=== PATIENT | male | born 1950 | race Caucasian/White ===

== ENCOUNTER 2020-10-21 10:22 | Outpatient (REF) | payer MEDICARE, SELFPAY | END 2020-10-21 10:23 | disposition home or self-care (01) | LOC: HO.LAB 10:22 | PROVIDERS: Visit Provider Internal Medicine | DX: Z20.828 Contact with and (suspected) exposure to other viral communicable diseases (principal) | CPT/HCPCS: C9803; U0003 ==

== ENCOUNTER 2022-06-25 09:55 | Day surgery (SDC) | payer MEDICARE, SELFPAY ==
[2022-06-25 10:05] VITALS: BP 134/86; PULSE 73; RESP 18; TEMP 36.5; O2SAT 96; BMI 34.9
[2022-06-25] MEDS: Lactated Ringers 1,000 ML 100 ML IVCONT (10:31)
--- NOTE | 2022-06-25 12:15 | P.CONAN_ITS ---
HPI - Anesthesia Eval Consult details Narrative: 72 M for colonoscopy a fib ,CAD s/p CABG in 2019 . On LAsix COPD, SHIRIN PMFSH Past Medical History Medical History Afib Anxiety COPD (chronic obstructive pulmonary disease) Hyperlipemia Hypertension Prediabetes Functional capacity: independent ambulation Family History Family history of problems with anesthesia: No Surgical History Surgical History History of colonoscopy History of coronary artery bypass graft x 2 History of elbow surgery History of knee surgery History of repair of left rotator cuff History of Problems with Anesthesia: No Social History Social History Patient Tobacco Use Status: Former Tobacco user Quit Date: 30 years ago Use of substances other than those prescribed or required for medical reasons: No Are you DNR?: No Advance Directives: No Advance Directives Information Provided: Yes Meds Allergies Allergy/AdvReac Type Severity Reaction Status Date / Time No Known Allergies Allergy Unverified 07/17/20 15:30 Active Medications: Current Medications Lactated Ringer's (Lr) 1,000 mls @ 100 mls/hr IVCONT .Q10H BRENDA Last Admin: 06/25/22 10:31 Dose: 100 mls/hr Sodium Biphosphate/Sodium Phosphate (Sodium Phosphate,Dickenson-Dibasic 133 Ml Enema) 133 ml PA ONCE PRN PRN Reason: Poor Colonoscopy Prep Results Home Medications Medication Instructions Recorded Confirmed Last Taken Type albuterol sulfate 90 mcg/actuation inh inhalation 06/24/22 Unknown History aerosol inhaler ezetimibe 10 mg tablet 1 tab PO DAILY 06/24/22 06/24/22 Unknown History fluticasone fur. 100 mcg-umeclid 1 puff inhalation DAILY 06/24/22 06/24/22 Unknown History 62.5 mcg-vilant 25 mcg inhalat.powder (Trelegy Ellipta) montelukast 10 mg tablet 1 tab PO DAILY 06/24/22 06/24/22 Unknown History tamsulosin 0.4 mg capsule 1 cap PO DAILY 06/24/22 06/24/22 Unknown History venlafaxine 75 mg capsule,extended 1 cap PO DAILY 06/24/22 06/24/22 Unknown History release 24 hr Exam Exam Date and Time: June 25, 2022 1215 Height,Weight and Vital Signs: Height 6 ft 1 in Weight 120.202 kg Last Vital Signs Temp 97.7 F 06/25/22 10:05 Pulse 73 06/25/22 10:05 Resp 18 06/25/22 10:05 BP 134/86 06/25/22 10:05 Pulse Ox 96 06/25/22 10:05 O2 Del Method 06/25/22 10:05 Airway Mallampati Class: III TM Dist: >3cm Neck ROM: Full Loose/Missing/Broken Teeth: Yes (Chipped tooth , bridge permanent ) Heart: S1,S2 Lungs: b/l breath sounds Assessment and Plan Assessment Anesthesia Assessment: Anesthesia Plan Discussed and Chart Reviewed Final Anesthetic Review Family History of Problems with Anesthesia: No History of Problems with Anesthesia: No NPO: Yes ASA Class: III Final Preanesthetic Review: Meds/Allgs Chart Reviewed, Consent Obtained/Reviewed and Anes Risks/Benef Reviewed Patient Risk: Intermediate Procedure Risk: Intermediate Anesthetic Plan Anesthetic Plan: MAC: Disposition: Standard PACU
[2022-06-25 13:23] VITALS: BP 124/81; PULSE 83; RESP 21; TEMP 36.8; O2SAT 100
--- NOTE | 2022-06-25 13:30 | PM.OP ---
Brief Operative Note Date of Service: 06/25/22 Pre-op diagnosis: Screening Post-op diagnosis: other (Colon polyps) Procedure: Colonoscopy to the cecum with hot snare polypectomy x 4 and placement of a Resolution clip on each polypectomy site. Surgeon: Jose E Calle Anesthesia: MAC Was an Power Builder Developer used for this Procedure?: No Estimated blood loss (mL): 0 Pathology: other (A. Polyp at 60cm B. Transverse colon polyps C. Rectal polyp) Condition: stable Disposition: PACU
[2022-06-25 13:45] VITALS: BP 156/97; PULSE 82; RESP 18; TEMP 36.8; O2SAT 97
--- NOTE | 2022-06-25 22:12 | OP_ITS ---
SURGEON: Jose E Calle MD INDICATIONS: The patient presents for followup of colorectal cancer screening. Full consent has been obtained from him for this, including risks of bleeding and perforation. PREOPERATIVE DIAGNOSIS: Colorectal cancer screening. POSTOPERATIVE DIAGNOSIS: PROCEDURE PERFORMED: Colonoscopy to cecum with hot snare polypectomy x4 and placement of a Resolution clip on each polypectomy site. ESTIMATED BLOOD LOSS: COMPLICATIONS: ANESTHESIA: Monitored anesthesia care. ASSISTANTS: SPECIMENS: POSTOPERATIVE DIAGNOSES: Colorectal cancer screening, colon polyps, diverticulosis, and internal hemorrhoids. DESCRIPTION OF PROCEDURE: The patient was placed in the left lateral decubitus position. The digital rectal exam revealed no abnormalities. The Olympus video pediatric colonoscope was entered into the rectum and advanced easily to the cecum. Once in the cecum, I did identify normal-appearing cecal pouch with appendiceal orifice and a normal-appearing ileocecal valve. The entire cecum and ileocecal valve appeared normal. The scope was slowly withdrawn assessing all mucosal surfaces carefully. Preparation was excellent. In the more proximal transverse colon was an approximately 10 mm to 12 mm polyp, which was removed by hot snare polypectomy, recovered by suction. In the more distal transverse colon, was an approximately 1.5 cm polyp on a short stalk, which was removed by hot snare polypectomy and then recovered with a retrieval net. The scope was brought out of the patient and then readvanced back to the polypectomy site. At 60 cm, was an approximately 8 mm polyp, which was removed by hot snare polypectomy and recovered by suction. In the distal rectum, was an approximately 5 or 6 mm polyp, which was removed by hot snare polypectomy and recovered by suction. All four of the polypectomy sites appeared clean, without any sign of residual polyp nor bleeding. A single Resolution clip was placed on each polypectomy site with good deployment and good hemostasis. I did not visualize any other polyps, colitis, or angiodysplasia. There was a mild amount of sigmoid diverticulosis. In the rectum, scope was retroflexed visualizing some small internal hemorrhoids. The scope was straightened and withdrawn from the patient. He tolerated the procedure well and was returned to recovery area in stable condition. IMPRESSION: 1. Colon polyps. 2. Diverticulosis. 3. Internal hemorrhoids. PLAN: The results of the pathology will be checked. Given the number of polyps and the relatively large one in the distal transverse colon, I would recommend a repeat colonoscopy in 3 years for surveillance. He was advised to resume his Xarelto in 24 hours. He will otherwise see me as needed. He was advised not to use any aspirin or NSAIDs for at least a week, although I do not think he is on those anyway given that he is on Xarelto. This has been discussed with his . MD ANKUR Arrington/KRYSTINA / [phone]
== END 2022-06-25 14:00 | disposition home or self-care (01) ==
PROVIDERS: PCP Nurse Practitioner Family; Visit Provider Internal Medicine
PROC: 0DJD8ZZ Inspection of Lower Intestinal Tract, Via Natural or Artificial Opening Endoscopic (ICD-10-PCS; CPT 45378; principal; 2022-06-25 11:20)
DX: Z12.11 Encounter for screening for malignant neoplasm of colon (principal); D12.3 Benign neoplasm of transverse colon; D12.4 Benign neoplasm of descending colon; D12.8 Benign neoplasm of rectum; K57.30 Diverticulosis of large intestine without perforation or abscess without bleeding; K64.8 Other hemorrhoids; I10 Essential (primary) hypertension; E78.5 Hyperlipidemia, unspecified; J44.9 Chronic obstructive pulmonary disease, unspecified; I48.91 Unspecified atrial fibrillation; R73.03 Prediabetes; Z79.01 Long term (current) use of anticoagulants; Z79.51 Long term (current) use of inhaled steroids; Z79.899 Other long term (current) drug therapy; Z87.891 Personal history of nicotine dependence
CPT/HCPCS: 45385; 88305

== ENCOUNTER 2023-02-23 11:54 | Outpatient (REF) | payer MEDICARE, SELFPAY ==
--- NOTE | ~2023-02-23 | US_ITS ---
EXAMINATION: US RETROPERITONEAL COMPLETE (RENAL) CLINICAL INFORMATION: Urinary frequency. COMPARISON: Ultrasound renal 04/09/2016. TECHNIQUE: Real-time imaging of the kidneys and bladder. FINDINGS: RIGHT KIDNEY: 13.0 x 6.3 x 7.1 cm (SAG x AP x TRV). The kidney is normal in size, contour, and echogenicity. Renal cortical thickness is normal. No calculi or focal parenchymal lesions. No hydronephrosis. LEFT KIDNEY: 12.1 x 6.3 x 5.8 cm (SAG x AP x TRV). The kidney is normal in size, contour, and echogenicity. Renal cortical thickness is normal. No calculi or focal parenchymal lesions. No hydronephrosis. BLADDER: The bladder is distended. The bladder wall is mildly thickened with trabeculation. Bilateral ureteral jets are demonstrated. Prevoid bladder volume is 226 mL. Postvoid bladder volume is 156 mL. Enlarged prostate with prominent median lobe of the prostate gland with prostate volume of 120 mL. US/US retroperitoneal comp IMPRESSION: No significant renal abnormality appreciated. Enlarged prostate gland with thick-walled and trabeculated urinary bladder. Large postvoid residual of 69%.
[2023-02-23 14:02] LABS: PSA,Total (Free>4and<10) 5.97 ng/mL (0.00-4.00)
[2023-02-25 12:53] LABS: Percent Free Prostate Spec Ag 17 % (calc) (>25); Prostate Specific Ag Total 5.9 ng/mL (< OR = 4.0)
== END 2023-02-23 11:55 | disposition home or self-care (01) ==
LOC: HO.US 11:54
PROVIDERS: PCP Nurse Practitioner Family; Visit Provider Nurse Practitioner Family
DX: R35.0 Frequency of micturition (principal); N40.1 Benign prostatic hyperplasia with lower urinary tract symptoms; N13.8 Other obstructive and reflux uropathy; Z12.5 Encounter for screening for malignant neoplasm of prostate
CPT/HCPCS: 36415; 76770; 84153; 84154

== ENCOUNTER → 2023-02-24 10:38 | Outpatient (BNVA) | payer MEDICARE, SELFPAY | PROVIDERS: PCP Nurse Practitioner Family; Visit Provider Nurse Practitioner Family | DX: N40.1 Benign prostatic hyperplasia with lower urinary tract symptoms (principal); N13.8 Other obstructive and reflux uropathy; R35.0 Frequency of micturition; R33.9 Retention of urine, unspecified | CPT/HCPCS: 99202 ==

== ENCOUNTER 2023-03-03 14:06 | Outpatient (REF) | payer MEDICARE, SELFPAY ==
[2023-03-03 15:15] LABS: Appearance Urine Clear; Color Urine Yellow; Glucose Urine UA Negative (Negative); Leukocyte Esterase Urine Small (1+) (Negative); Nitrite Urine Negative (Negative); PH 6.5 (5.0-9.0); Specific Gravity - Urine 1.015 (1.005-1.025); UMIC TRIGGER UA YES; Urine Blood Negative (Negative); Urine Ketones Negative (Negative); Urine Protein Negative (Neg-Trace)
[2023-03-03 15:18] LABS: Bacteria Urine None Seen (None Seen); Hyaline Casts Urine 0-2 /LPF (0-2); RBC Urine 0-2 /HPF (0-2); Squamous Epithelial Cell Urine 0-2 /HPF (0-2)
== END 2023-03-03 14:07 | disposition home or self-care (01) ==
LOC: HO.LAB 14:06
PROVIDERS: PCP Nurse Practitioner Family; Visit Provider Nurse Practitioner Family
DX: R30.0 Dysuria (principal)
CPT/HCPCS: 81001

== ENCOUNTER → 2023-03-04 14:47 | Outpatient (BNVA) | payer MEDICARE, SELFPAY | PROVIDERS: PCP Nurse Practitioner Family; Visit Provider Nurse Practitioner Family | DX: N40.1 Benign prostatic hyperplasia with lower urinary tract symptoms (principal); N13.8 Other obstructive and reflux uropathy; R33.9 Retention of urine, unspecified | CPT/HCPCS: 51798; 99212 ==

== ENCOUNTER → 2023-03-11 13:51 | Outpatient (BNVA) | payer MEDICARE, SELFPAY | PROVIDERS: PCP Nurse Practitioner Family; Visit Provider Urology | DX: N40.1 Benign prostatic hyperplasia with lower urinary tract symptoms (principal); N13.8 Other obstructive and reflux uropathy; R35.0 Frequency of micturition | CPT/HCPCS: 52000; 99212 ==

== ENCOUNTER → 2023-05-19 14:32 | Outpatient (BNVA) | payer MEDICARE, SELFPAY | PROVIDERS: PCP Nurse Practitioner Family; Visit Provider Physician Assistant Surgical ==

== ENCOUNTER 2023-08-18 08:11 | Outpatient (AMB) | payer MEDICARE, SELFPAY ==
--- NOTE | 2023-08-18 08:47 | A.OFFVIS_ITS ---
Intake Intake Visit Reasons: H&P ([facility] 09/12) Intake Note: Patient is Present for Telephone Follow Up H&P [facility] U[facility] Med: Finasteride, Tamsulosin Antibiotic Allergy: None Blood Thinner: Xarelto Pharamcy: Big Y Allergies No Known Allergies Allergy (Verified 08/18/23 08:48) HPI HPI Comments History of Present Illness Details Obed is a pleasant male. He is a patient of . He seen for the following urologic conditions - lower urinary tract symptoms Telemedicine Evaluation 15 min Consultation CoPatient Juan Video attempted Cardiac clearance Prior Cystoscopy - Trilobar hypertrophy with long intra p rostatic urethra - Bladder with significant trabeculation s and cellules PSA 02/20 6.0 17% Lower urinary tract symptoms Progressive Known large prostate imaging representing 120 cc Recently started tamsulosin 0.8 and finasteride Prior PVR 140 cc Primarily weakness of stream with nocturia PFSH Medical History COPD (chronic obstructive pulmonary disease) Prediabetes Afib Anxiety Hyperlipemia Hypertension Surgical History History of coronary artery bypass graft x 2 History of elbow surgery History of repair of left rotator cuff History of knee surgery History of colonoscopy Social History Alcohol intake: current Alcohol intake frequency: holidays/special occasions only Patient Tobacco Use Status: Former Tobacco user Quit Date: 35 years ago Review of Systems Const All systems reviewed & are unremarkable except as noted in HPI and below Reports no additional complaints Resp Reports no additional complaints GI Reports no additional complaints Reports as per HPI Musc Reports no additional complaints Physical Exam Telemedicine evaluation Appropriate responses Regular breathing rate and rhythm HEENT Head: Yes normal to inspection Ears: hearing grossly normal bilaterally Eyes General: appearance normal, both eyes and all related structures Neck Neck: Yes normal visual inspection Chest Chest palpation & inspection: normal inspection of the chest Resp Effort & Inspection: normal respiratory effort and able to speak in complete sentences Assessment & Plan Assessment & Plan (1) Elevated PSA: Code(s): R97.20 - Elevated prostate specific antigen [PSA] (2) BPH w urinary obs/LUTS: Code(s): N40.1 - Benign prostatic hyperplasia with lower urinary tract symptoms; N13.8 - Other obstructive and reflux uropathy Plan Risks, benefits and alternatives to therapy were discussed. These include but are not limited to infection, bleeding, damage to local organs and tissues, need for further interventions. Anesthetic risks regarding cardiac arrhythmia, blood clots, and potential mortality were discussed. The patient understands the typical recovery time and the outpatient nature of the procedure. After consideration of these risks the patient gives full informed consent and they wish to move ahead with the procedure. Green Light Laser Prostate Patient Instructions: Imaging studies, laboratory and physical exam results were discussed and reviewed in detail. No major barriers to patient understanding were identified. An opportunity to ask questions regarding the treatment plan was provided. All questions were answered. The patient expressed understanding and agreement with the above treatment plan. The patient is aware they should contact our office by phone for worsening of their current condition or the appearance of new urologic symptoms. Compliance is encouraged with any medications and followup testing that is ordered. It is a privilege to participate in the urologic care of your patient. If you have any questions or concerns regarding treatment for the above conditions, or other urologic issues, please do not hesitate to contact me. The office telephone contact is [phone]. This note is constructed using voice recognition software. While every effort has been made to ensure accuracy jute bag clipper errors may have been included. Yours sincerely, Dr Jorge Sexton MD, [facility] - Urology Providers of Expert, Compassionate Care for the Genitourinary System Telehealth Telehealth Location of provider rendering services: practice address Location of patient: address on file Patient Identification confirmed using: Name, : Yes Telehealth method: video Patient verbally consented to treatment: Yes Patient verbally consented to billing insurance company: Yes Patient informed of any privacy concerns related to visit: Yes Coding Level of Care Code Tele Est Pt Level 3 (54914) Diagnoses Elevated PSA R97.20 BPH w urinary obs/LUTS N40.1; N13.8
== END 2023-08-18 10:07 | disposition home or self-care (01) ==
LOC: HO.HUSH 08:12
PROVIDERS: PCP Nurse Practitioner Family; Visit Provider Urology
DX: R97.20 Elevated prostate specific antigen [PSA] (principal); N40.1 Benign prostatic hyperplasia with lower urinary tract symptoms; N13.8 Other obstructive and reflux uropathy
CPT/HCPCS: 99213

== ENCOUNTER → 2023-08-18 08:11 | Outpatient (BNVA) | payer MEDICARE, SELFPAY | PROVIDERS: PCP Nurse Practitioner Family; Visit Provider Urology ==

== ENCOUNTER 2023-09-12 05:59 | Day surgery (SDC) | payer MEDICARE, SELFPAY ==
[2023-09-08 12:56] VITALS: BMI 34.3
[2023-09-12] VITALS (8 sets, daily range): BP systolic 115–138; BP diastolic 58–81; PULSE 77–108; RESP 16–18; TEMP 36.4–36.8; O2SAT 92–96
--- NOTE | 2023-09-12 07:13 | P.CONAN_ITS ---
HPI - Anesthesia Eval Consult details Narrative: 73 yo M presenting for green light laser prostate. Hx of HFrEF (EF 35-45%), CAD, afib, HTN, HLD, COPD, DM, CKD 3, and SHIRIN on CPAP. [facility] Active Problems Active Problems: All Active Problems (Updated 07/23/23 @ 19:43 by Rochelle Apodaca [facility]) Elevated PSA (Acute) Dysuria (Acute) Incomplete bladder emptying (Acute) BPH w urinary obs/LUTS (Acute) Urinary frequency (Acute) Past Medical History Medical History COPD (chronic obstructive pulmonary disease) Prediabetes Afib Anxiety Hyperlipemia Hypertension Family History Family history of problems with anesthesia: No Surgical History Surgical History History of coronary artery bypass graft x 2 History of elbow surgery History of repair of left rotator cuff History of knee surgery History of colonoscopy History of Problems with Anesthesia: No Social History Social History Household Members: Spouse Housing: House Are you a primary child care education coordinator to a significant other at home: No Do you presently have visiting nurse or other home services: No Alcohol intake: current Alcohol intake frequency: holidays/special occasions only Patient Tobacco Use Status: Former Tobacco user Quit Date: Tobacco use type: Cigarette Use of substances other than those prescribed or required for medical reasons: No Have you been hit, kicked, punched, or otherwise hurt by someone within the past year? If so, by whom?: No Are you DNR?: No Advance Directives: No Advance Directives Information Provided: Yes Advance Directives on File: No Recently lost weight without trying: No Nutrition Risks: No Nutritional Risk Poor oral hygiene: No Meds Allergies Allergy/AdvReac Type Severity Reaction Status Date / Time No Known Allergies Allergy Verified 09/08/23 12:56 Home Medications Medication Instructions Recorded Confirmed Last Taken Type albuterol sulfate 90 mcg/actuation 1 - 2 inh inhalation Q4-6H PRN 06/24/22 09/08/23 Unknown History aerosol inhaler Shortness Of Breath ezetimibe 10 mg tablet 1 tab PO DAILY 06/24/22 09/08/23 Unknown History fluticasone fur. 100 mcg-umeclid 1 puff inhalation DAILY 06/24/22 09/08/23 Unknown History 62.5 mcg-vilant 25 mcg inhalat.powder (Trelegy Ellipta) montelukast 10 mg tablet 1 tab PO DAILY 06/24/22 09/08/23 Unknown History venlafaxine 75 mg capsule,extended 1 cap PO DAILY 06/24/22 09/08/23 Unknown History release 24 hr tamsulosin 0.4 mg capsule (Flomax) 0.4 mg PO DAILY@1700 03/06/23 09/08/23 Unknown History lisinopril 5 mg tablet 5 mg PO DAILY 05/19/23 Unknown History metformin 500 mg tablet 500 mg PO BID 05/19/23 09/08/23 Unknown History furosemide 20 mg tablet 20 mg PO DAILY 09/08/23 09/08/23 Unknown History rivaroxaban 20 mg tablet (Xarelto) 20 mg PO DAILY@1700 09/08/23 09/08/23 Unknown History sacubitril 49 mg-valsartan 51 mg 1 tab PO BID 09/08/23 09/08/23 Unknown History tablet (Entresto) Exam Exam Date and Time: September 12, 2023 0713 Height,Weight and Vital Signs: Height 6 ft 1 in Weight 117.934 kg Last Vital Signs Temp 98.1 F 09/12/23 06:37 Pulse 77 09/12/23 06:37 Resp 16 09/12/23 06:37 BP 138/69 09/12/23 06:37 Pulse Ox 96 09/12/23 06:37 O2 Del Method Room Air 09/12/23 06:37 Airway Mallampati Class: III TM Dist: >3cm Neck ROM: Full Loose/Missing/Broken Teeth: No (patient denies) Heart: S1S2 Lungs: CTAB Assessment and Plan Assessment Anesthesia Assessment: Anesthesia Plan Discussed and Chart Reviewed Final Anesthetic Review Family History of Problems with Anesthesia: No History of Problems with Anesthesia: No NPO: Yes ASA Class: III Final Preanesthetic Review: No Changes in Pt Med Stat, Meds/Allgs Chart Reviewed, Consent Obtained/Reviewed and Anes Risks/Benef Reviewed Patient Risk: High Procedure Risk: Low Anesthetic Plan Anesthetic Plan: GA and Agree w/ Assess. and Plan Disposition: Standard PACU
--- NOTE | 2023-09-12 09:11 | P.OP_ITS ---
Operative Note Operative Note Date of Service: 09/12/23 Narrative: PreOperative Diagnosis: Bladder outlet obstruction Post Operative Diagnosis: Bladder outlet obstruction Procedure: GreenLight Laser Enucleation of the prostate Surgeon: Dr Jorge Sexton Anesthesia: General Indications for procedure: Longstanding with diabetes History of bladder outlet obstruction. Treated with alpha-joseline and other medications. Still with symptoms. On cystoscopy in office has trilobar prostate. Recommendation for prostate procedure with laser enucleation of prostate. Risks and benefits have been discussed. Focus was placed on development of retrograde ejaculation which is a normal part of this procedure. Procedure: After informed consent was verified the patient was brought to the operating room and placed in a supine position. Anesthesia was administered per protocol. Patient was placed in modified dorsal lithotomy position and prepped and draped in a sterile fashion. Safety pause time-out was confirmed. Antibiotics have been given. A Twenty-four Slovenian laser cystoscope was inserted per urethra. No abnormalities were found of the anterior and bulbar urethra. The bladder was examined and both ureteric orifices were seen in their normal positions away from the area of interest. Grade 2/3 trabeculations with cellules Using a GreenLight laser with settings of 80 w incisions were made at the 5 and 7 o'clock position. The incisions were taken down from the bladder neck down to the level of the veru. These were gradually deepened in order to define the lateral aspects of the median lobe area. Once clearly defined they will also extended in the lateral directions in order to create a deep groove. The median lobe was then ablated and enucleated tissue released into the bladder with the laser power increased to 120 W. Once the median lobe area had been cleared attention was directed to the lateral lobes. Starting with the patient's left lateral lobe. First the 05:00 o'clock groove was further developed. This was moved in the lateral direction to undermine the tissue on the lateral side running from the bladder neck to the prostate apex. Focus was then placed on the laser at the 1 o'clock position to developing a secondary groove down to the level of bladder fibers. The creation of a second deep groove defined a segment of intervening tissue similar to a slice of orange. At the apex of the prostate the 2 grooves were linked the us releasing the intervening tissue. This tissue was then removed with a combination of enucleation and ablation working from the apex toward the bladder neck. A similar procedure was repeated on the patient's right-hand side. The only differences being the position of the lateral groove at he 7 'oclock position and the secondary groove at the 11 o'clock position, Otherwise the procedure was developed in a mirror fashion. After the majority of tissue had been debulked remnant tissue was ablated with the side fire laser and the curve of the prostate followed up each side wall clearly defining the anterior remnant strip that remained between the 11 and 1 o'clock positions. In this case the anterior tissue protruded into the prostatic fossa and was partially ablated with the laser When this was had been completed debris and pieces of prostate were removed from the bladder with irrigation. Both ureteric orifices were reviewed again in shown to be patent in away from any areas of energy damage. The apical area was reviewed in any stray ooze was controlled. A 22 Slovenian 30 cc balloon Romo catheter was placed over a stylet into the bladder. Clear efflux was obtained upopn irrigation with a Efrain piston syringe. 30 cc was placed in the balloon and gentle traction was placed. A snap was used to hold tension on the catheter to control bleeding during patient moved and transported. A drainage bag was placed. Once transportation is complete to the PACU the snap will be removed. The patient tolerated the procedure well, he was extubated in the operating and transferred in a stable condition to the recovery area. Total Power 244 kW kW Lasing time 36:47 Pathology: Prostate tissue Drains: Romo catheter
== END 2023-09-12 10:48 | disposition home or self-care (01) ==
PROVIDERS: PCP Nurse Practitioner Family; Visit Provider Urology
PROC: (CPT 52648; principal; 2023-09-12 07:30)
DX: N40.1 Benign prostatic hyperplasia with lower urinary tract symptoms (principal); R97.20 Elevated prostate specific antigen [PSA]; N13.8 Other obstructive and reflux uropathy; R35.1 Nocturia; R39.12 Poor urinary stream; J44.9 Chronic obstructive pulmonary disease, unspecified; I10 Essential (primary) hypertension; E78.5 Hyperlipidemia, unspecified; E11.9 Type 2 diabetes mellitus without complications; I48.91 Unspecified atrial fibrillation; Z79.01 Long term (current) use of anticoagulants; Z79.51 Long term (current) use of inhaled steroids; Z79.84 Long term (current) use of oral hypoglycemic drugs; Z79.899 Other long term (current) drug therapy; Z98.890 Other specified postprocedural states; Z87.891 Personal history of nicotine dependence
CPT/HCPCS: 52649; 88305; J0131; J1956; J2371; J2405; J2704; J3010

== ENCOUNTER → 2023-09-12 05:59 | Outpatient (BNV) | payer MEDICARE, SELFPAY | PROVIDERS: PCP Nurse Practitioner Family; Visit Provider Urology | DX: N40.1 Benign prostatic hyperplasia with lower urinary tract symptoms (principal) | CPT/HCPCS: 52649 ==

== ENCOUNTER 2023-09-17 13:03 | Outpatient (REF) | payer MEDICARE, SELFPAY ==
[2023-09-17 15:19] LABS: Appearance Urine Cloudy; Color Urine Dark Yellow; Glucose Urine UA Negative (Negative); Leukocyte Esterase Urine Moderate (2+) (Negative); Nitrite Urine Positive (Negative); PH 5.5 (5.0-9.0); Specific Gravity - Urine 1.015 (1.005-1.025); UMIC TRIGGER UACC YES; Urine Blood Large (3+) (Negative); Urine Ketones Negative (Negative); Urine Protein 300 (3+) mg/dL (Neg-Trace)
[2023-09-17 15:27] LABS: Bacteria Urine None Seen (None Seen); Hyaline Casts Urine 0-2 /LPF (0-2); RBC Urine >20 /HPF (0-2); UACC Culture Trigger YES; WBC Urine >50 /HPF (0-5)
== END 2023-09-17 13:04 | disposition home or self-care (01) ==
LOC: HO.HMGCLDS 13:03
PROVIDERS: PCP Nurse Practitioner Family; Visit Provider Nurse Practitioner Family
DX: R30.0 Dysuria (principal); R35.0 Frequency of micturition
CPT/HCPCS: 81001; 87086

== ENCOUNTER → 2023-09-28 09:05 | Outpatient (BNVA) | payer MEDICARE, SELFPAY | PROVIDERS: PCP Nurse Practitioner Family; Visit Provider Nurse Practitioner Family ==

== ENCOUNTER 2023-10-20 09:13 | Outpatient (AMB) | payer MEDICARE, SELFPAY ==
--- NOTE | 2023-10-20 09:21 | A.OFFVIS_ITS ---
Intake Intake Visit Reasons: 6 week greenlight post op Intake Note: Patient is Present for Follow-up H&P Greenlight: Urology Med: Finasteride, Tamsulosin Antibiotic Allergy: None Blood Thinner: Xarelto Pharamcy: Big Y PVR: 22 mL Ocean Export Account Manager Required: No Accompanied by: Self / Same As Patient Allergies No Known Allergies Allergy (Verified 10/20/23 09:22) HPI HPI Comments History of Present Illness Details Obed is a pleasant male. He is a patient of . He seen for the following urologic conditions - lower urinary tract symptoms - incomplete bladder emptying Six weeks post laser prostatectomy PVR under 50 cc. Distinct improvement Improved stream. 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 - Bladder with significant trabeculation s and cellules PSA 02/20 6.0 17% Lower urinary tract symptoms Progressive Known large prostate imaging representing 120 cc Recently started tamsulosin 0.8 and finasteride Prior PVR 140 cc Primarily weakness of stream with nocturia PFSH Medical History COPD (chronic obstructive pulmonary disease) Prediabetes Afib Anxiety Hyperlipemia Hypertension Surgical History History of coronary artery bypass graft x 2 History of elbow surgery History of repair of left rotator cuff History of knee surgery History of colonoscopy Social History Household Members: Spouse Housing: House Are you a primary care consultant to a significant other at home: No Do you presently have visiting nurse or other home services: No 75 years or older and lives alone: No Alcohol intake: current Alcohol intake frequency: holidays/special occasions only Comment: tolerable Patient Tobacco Use Status: Former Tobacco user Quit Date: Tobacco use type: Cigarette Review of Systems Const Denies chills and Denies fever(s) Card Reports no additional complaints and Denies syncope Resp Denies cough GI Denies abdominal pain and Denies heartburn Reports as per HPI and Denies change in libido Neuro Denies syncope Psych Denies change in libido Endo Denies change in libido Physical Exam Const General: cooperative, healthy appearing, comfortable and no acute distress Orientation/consciousness: patient oriented x3 HEENT Face and sinus: Yes normal facial exam Mouth: moist mucous membranes Neck Neck: Yes normal visual inspection, Yes full ROM and Yes trachea midline Chest Chest palpation & inspection: normal inspection of the chest Resp Effort & Inspection: normal respiratory effort, able to speak in complete sentences and no respiratory distress GI Inspection: Yes normal to inspection Back/Spine/Pelvis Cervical Spine: normal cervical lordosis Thoracic/Lumbar Spine: thoracic and lumbar spine normal to inspection Skin General skin exam: no rashes or lesions noted Neuro General: patient oriented x3, gait normal, tone normal and moves all extremities Extrem General: Yes normal to inspection and Yes capillary refill normal Office Procedures Post Void Residual Post Residual Void Post Void Residual (PVR): 22 [id number] Void Residual by ultrasound Assessment & Plan Assessment & Plan (1) Incomplete bladder emptying: Code(s): R33.9 - Retention of urine, unspecified (2) Elevated PSA: Code(s): R97.20 - Elevated prostate specific antigen [PSA] Plan Three month follow-up Orders: Orders PSA,Total (Free>4and<10) 3 Months N13.8 - Other obstructive and reflux uropathy, N40.1 - Benign prostatic hyperplasia with lower urinary tract symptoms AMB Post Void Residual by ultrasound Today N39.8 - Other specified disorders of urinary system Patient Instructions: Imaging studies, laboratory and physical exam results were discussed and reviewed in detail. No major barriers to patient understanding were identified. An opportunity to ask questions regarding the treatment plan was provided. All questions were answered. The patient expressed understanding and agreement with the above treatment plan. The patient is aware they should contact our office by phone for worsening of their current condition or the appearance of new urologic symptoms. Compliance is encouraged with any medications and followup testing that is ordered. It is a privilege to participate in the urologic care of your patient. If you have any questions or concerns regarding treatment for the above conditions, or other urologic issues, please do not hesitate to contact me. The office telephone contact is [phone]. This note is constructed using voice recognition software. While every effort has been made to ensure accuracy medical transcriptionist errors may have been included. Yours sincerely, Dr Jorge Sexton MD, [facility] - Urology Providers of Expert, Compassionate Care for the Genitourinary System Coding Level of Care Code Est Pt Level 3 (21849) Diagnoses Incomplete bladder emptying R33.9 Elevated PSA R97.20 CPT Codes Post Residual Void - PVR CPT Code: 06472-Puxs Void Residual by ultrasound ([id number])
== END 2023-10-20 09:33 | disposition home or self-care (01) ==
PROVIDERS: PCP Nurse Practitioner Family; Visit Provider Urology
DX: R33.9 Retention of urine, unspecified (principal); R97.20 Elevated prostate specific antigen [PSA]; Z13.9 Encounter for screening, unspecified
CPT/HCPCS: 99024

== ENCOUNTER → 2023-10-20 09:13 | Outpatient (BNVA) | payer MEDICARE, SELFPAY | PROVIDERS: PCP Nurse Practitioner Family; Visit Provider Urology | DX: R33.9 Retention of urine, unspecified (principal); R97.20 Elevated prostate specific antigen [PSA] | CPT/HCPCS: 51798; 81003; 99212 ==

== ENCOUNTER 2023-12-09 13:17 | Emergency (ER) | payer MEDICARE, SELFPAY ==
[2023-12-09 13:30] VITALS: BP 128/68; PULSE 68; RESP 20; TEMP 37.1; O2SAT 95; BMI 33.6
--- NOTE | 2023-12-09 13:32 | ED.GENADULT ---
HPI - General Adult General Chief complaint: Wound/Laceration Stated complaint: burn on R hand Time Seen by Provider: 12/09/23 13:38 Source: patient Mode of arrival: ambulatory Limitations: no limitations History of Present Illness HPI narrative: Patient is 73 year male who presents emergency department for evaluation of a burn to the right hand. Reports 5 days ago spilt hot coffee on the hand accidentally resulting in a burn predominantly over the 2nd digit. Has been placing triple antibiotic ointment but has only worsened. Denies numbness tingling. Denies fevers or chills. Unaware of date of last tetanus vaccination Related Data Home Medications Medication Instructions Recorded Confirmed albuterol sulfate 90 mcg/actuation 1 - 2 inh inhalation Q4-6H PRN 06/24/22 09/08/23 aerosol inhaler Shortness Of Breath ezetimibe 10 mg tablet 1 tab PO DAILY 06/24/22 09/08/23 fluticasone fur. 100 mcg-umeclid 1 puff inhalation DAILY 06/24/22 09/08/23 62.5 mcg-vilant 25 mcg inhalat.powder (Trelegy Ellipta) montelukast 10 mg tablet 1 tab PO DAILY 06/24/22 09/08/23 venlafaxine 75 mg capsule,extended 1 cap PO DAILY 06/24/22 09/08/23 release 24 hr tamsulosin 0.4 mg capsule (Flomax) 0.4 mg PO DAILY@1700 03/06/23 09/08/23 lisinopril 5 mg tablet 5 mg PO DAILY 05/19/23 metformin 500 mg tablet 500 mg PO BID 05/19/23 09/08/23 furosemide 20 mg tablet 20 mg PO DAILY 09/08/23 09/08/23 rivaroxaban 20 mg tablet (Xarelto) 20 mg PO DAILY@1700 09/08/23 09/08/23 sacubitril 49 mg-valsartan 51 mg 1 tab PO BID 09/08/23 09/08/23 tablet (Entresto) Previous Rx's Medication Instructions Recorded metoprolol succinate 25 mg 25 mg PO DAILY #90 tabs 03/31/21 tablet,extended release 24 hr atorvastatin 80 mg tablet 80 mg PO BEDTIME 90 days #90 tabs 09/28/21 sulfamethoxazole 400 1 tab PO DAILY #10 tabs 09/12/23 mg-trimethoprim 80 mg tablet (Bactrim) oxybutynin chloride 5 mg tablet 5 mg PO Q8H PRN bladder spasms 30 09/17/23 days #20 tabs ciprofloxacin HCl 250 mg tablet 250 mg PO BID 7 days #14 tabs 09/28/23 finasteride 5 mg tablet 5 mg PO DAILY 90 days #90 tabs 10/27/23 cephalexin 500 mg capsule 500 mg PO QID #28 caps 12/09/23 mupirocin 2 % topical ointment 1 appl topical TID 7 days #15 grams 12/09/23 Allergies Allergy/AdvReac Type Severity Reaction Status Date / Time No Known Allergies Allergy Verified 12/09/23 13:34 Review of Systems Review of Systems: Yes all other systems are reviewed and are negative [facility] Past Medical History Attestation statement: The following information was validated with the patient. Source: old records reviewed Medical History COPD (chronic obstructive pulmonary disease) Prediabetes Afib Anxiety Hyperlipemia Hypertension Surgical History History of coronary artery bypass graft x 2 History of elbow surgery History of repair of left rotator cuff History of knee surgery History of colonoscopy Social History Social History Household Members: Spouse Housing: House Are you a primary primary care nurse to a significant other at home: No Do you presently have visiting nurse or other home services: No Alcohol intake: current Alcohol intake frequency: holidays/special occasions only Comment: tolerable Patient Tobacco Use Status: Former Tobacco user Quit Date: Tobacco use type: Cigarette Physical Exam ED Appearance: Alert.?Oriented to person, place and time. No acute distress.?Normal affect. Neck: Normal inspection.? Neck supple.?? CVS: Heart sounds normal. Normal heart rate and rhythm.? Pulses normal.?? Respiratory: No respiratory distress.? Lung sounds clear to auscultation bilaterally?? Abdomen: Soft and non-tender. Normoactive bowel sounds. Skin: Skin warm and dry.? Normal skin color.? Extremities: No lower extremity edema.? No calf ttp? Neuro: Moves all extremities spontaneously. Sensation intact bilaterally. Ambulates with normal steady gait. Medical Decision Making Medical Decision Making [facility] Narrative: Patient is a 73-year-old male who presents emergency department for evaluation of burn to the right hand from hot coffee, examination consistent with partial-thickness burn to the right hand over the second MCP, <1.25%, non circumferential. Mild decreased AROM to the MCP but can flex and fully extend the digit. Surrounding erythema concerning for localized cellulitis. Tdap updated today. Clinically does not appear to be septic bacteremic. Discussed wound treatment, cleansing, topical mupirocin in addition to oral antibiotics. Worrisome signs and symptoms that would warrant re-evaluation in the emergency department, close follow-up with primary care provider. All questions answered. Stable for discharge. Differential Diagnosis Differential Diagnoses: The differential diagnosis associated with the presentation includes (See narrative above) Admission/Observation Consideration of admission/observation: Escalation of care including admission/observation considered External Record Review External record reviewed: Outpatient record Prescription Management I considered prescription management with: Antibiotic Discharge Plan Discharge Clinical Impression: Partial thickness burn of back of right hand Patient Disposition: Home, Self-Care Instructions: Second Degree Burn (ED) Additional Instructions: Complete the entire course of antibiotics as prescribed. If the area of redness becomes larger extends to the hand, the should be re-evaluated. Contact your primary care provider to arrange for a follow-up visit with days for re-evaluation. Return back to emergency department any new or worsening symptoms or concerns. Prescriptions: New mupirocin 2 % ointment 1 appl topical TID 7 Days Qty: 15 0RF cephalexin 500 mg capsule 500 mg PO QID Qty: 28 0RF No Action metoprolol succinate 25 mg tablet extended release 24 hr 25 mg PO DAILY Qty: 90 0RF Rx Instructions: Needs cardiology follow up before more refills given atorvastatin 80 mg tablet 80 mg PO BEDTIME 90 Days Qty: 90 0RF Rx Instructions: Must call and schedule cardiology appt for refills oxybutynin chloride 5 mg tablet 5 mg PO Q8H PRN (Reason: bladder spasms) 30 Days Qty: 20 0RF ciprofloxacin HCl 250 mg tablet 250 mg PO BID 7 Days Qty: 14 0RF Rx Instructions: Hold low dose bactrim while on treatment for UTI finasteride 5 mg tablet 5 mg PO DAILY 90 Days Qty: 90 1RF venlafaxine 75 mg capsule,extended release 24hr 1 cap PO DAILY montelukast 10 mg tablet 1 tab PO DAILY albuterol sulfate 90 mcg/actuation HFA aerosol inhaler 1 - 2 inh inhalation Q4-6H PRN (Reason: Shortness Of Breath) ezetimibe 10 mg tablet 1 tab PO DAILY Trelegy Ellipta 100-62.5-25 mcg blister with device 1 puff inhalation DAILY Xarelto 20 mg tablet 20 mg PO DAILY@1700 Rx Instructions: must administer with evening meal - call and schedule a cardiology appt for refills furosemide 20 mg Tablet 20 mg PO DAILY Entresto 49-51 mg tablet 1 tab PO BID sulfamethoxazole-trimethoprim [Bactrim] 400-80 mg tablet 1 tab PO DAILY Qty: 10 0RF tamsulosin [Flomax] 0.4 mg capsule 0.4 mg PO DAILY@1700 metformin 500 mg tablet 500 mg PO BID lisinopril 5 mg tablet 5 mg PO DAILY Referrals: Page Bashir NP [Primary Care Provider] - Discharge Date/Time: 12/09/23 13:54
[2023-12-09] MEDS: Diphth,Pertus(ACell),Tet Adult 0.5 ML SYRINGE IM (13:44)
== END 2023-12-09 13:54 | disposition home or self-care (01) ==
PROVIDERS: Emergency Provider Emergency Medicine; PCP Nurse Practitioner Family
DX: T23.201A Burn of second degree of right hand, unspecified site, initial encounter (principal); X10.0XXA Contact with hot drinks, initial encounter; Y93.89 Activity, other specified; Y92.9 Unspecified place or not applicable; Y99.9 Unspecified external cause status; Z23 Encounter for immunization
CPT/HCPCS: 90471; 90715; 99282; 99284

== ENCOUNTER 2024-02-10 13:12 | Outpatient (REF) | payer MEDICARE, SELFPAY ==
[2024-02-10 14:23] LABS: PSA,Total (Free>4and<10) 1.77 ng/mL (0.00-4.00)
== END 2024-02-10 13:13 | disposition home or self-care (01) ==
LOC: HO.LAB 13:12
PROVIDERS: PCP Nurse Practitioner Family; Visit Provider Urology
DX: Z12.5 Encounter for screening for malignant neoplasm of prostate (principal); N40.1 Benign prostatic hyperplasia with lower urinary tract symptoms; N13.8 Other obstructive and reflux uropathy
CPT/HCPCS: 36415; 84153

== ENCOUNTER 2024-02-21 14:31 | Outpatient (AMB) | payer MEDICARE, SELFPAY ==
--- NOTE | 2024-02-21 14:39 | MHC.OFFVIS ---
Intake Visit Reasons: 3M PSA/PVR(set)Confirmed Intake Note: Patient is Present for Follow Up Urology Medication: Finasteride (Patient is no longer taking Oxybutynin and Tamsulosin) Antibiotic Allergies: None Blood Thinners: Xarelto PVR: 25 Allergies No Known Allergies Allergy (Verified 02/21/24 14:42) Medication List - Last Reconciled 02/21/24 by Jorge Sexton MD albuterol sulfate 90 mcg/actuation 1 - 2 inhalations inhalation Q4-6H PRN atorvastatin 80 mg PO BEDTIME 90 days cephalexin 500 mg PO QID ciprofloxacin HCl 250 mg PO BID 7 days ezetimibe 1 tab PO DAILY finasteride 5 mg PO DAILY 90 days [id number] 100-62.5-25 mcg (Trelegy Ellipta) 1 puff inhalation DAILY furosemide 20 mg PO DAILY lisinopril 5 mg PO DAILY metformin 500 mg PO BID metoprolol succinate ER 25 mg PO DAILY montelukast 1 tab PO DAILY mupirocin 2% 1 appl topical TID 7 days oxybutynin chloride 5 mg PO Q8H PRN 30 days rivaroxaban (Xarelto) 20 mg PO DAILY@1700 sacubitril-valsartan 49-51 mg (Entresto) 1 tab PO BID sulfamethoxazole-trimethoprim 400-80 mg (Bactrim) 1 tab PO DAILY venlafaxine ER 1 cap PO DAILY HPI Comments Details: Obed is a pleasant male. He is a patient of . 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 - Bladder with significant trabeculations and cellules 09/22 - GreenLight laser prostatectomy PSA 02/20 6.0 17%, 02/21 1.8 Lower urinary tract symptoms Progressive Known large prostate imaging representing 120 cc Prior medications include combination therapy with tamsulosin and finasteride Prior PVR 140 cc Primarily weakness of stream with nocturia PFSH Medical History COPD (chronic obstructive pulmonary disease) Prediabetes Afib Anxiety Hyperlipemia Hypertension Surgical History History of coronary artery bypass graft x 2 History of elbow surgery History of repair of left rotator cuff History of knee surgery History of colonoscopy Social History Household Members: Spouse Housing: House Are you a primary veterinarian laboratory animal care to a significant other at home: No Do you presently have visiting nurse or other home services: No 75 years or older and lives alone: No Alcohol intake: current Alcohol intake frequency: holidays/special occasions only Comment: tolerable Patient Tobacco Use Status: Former Tobacco user Quit Date: Tobacco use type: Cigarette Review of Systems Const Denies chills and Denies fever(s) Card Reports no additional complaints and Denies syncope Resp Denies cough GI Denies abdominal pain and Denies heartburn Reports as per HPI and Denies change in libido Neuro Denies syncope Psych Denies change in libido Endo Denies change in libido Physical Exam Const General: cooperative, healthy appearing, comfortable and no acute distress Orientation/consciousness: patient oriented x3 HEENT Face and sinus: Yes normal facial exam Mouth: moist mucous membranes Neck Neck: Yes normal visual inspection, Yes full ROM and Yes trachea midline Chest Chest palpation & inspection: normal inspection of the chest Resp Effort & Inspection: normal respiratory effort, able to speak in complete sentences and no respiratory distress GI Inspection: Yes normal to inspection Back/Spine/Pelvis Cervical Spine: normal cervical lordosis Thoracic/Lumbar Spine: thoracic and lumbar spine normal to inspection Skin General skin exam: no rashes or lesions noted Neuro General: patient oriented x3, gait normal, tone normal and moves all extremities Extrem General: Yes normal to inspection and Yes capillary refill normal Office Procedures Post Void Residual Post Residual Void Post Void Residual (PVR): 25 [id number] Void Residual by ultrasound Assessment & Plan Assessment & Plan (1) Elevated PSA: Code(s): R97.20 - Elevated prostate specific antigen [PSA] Category: Medical (2) BPH w urinary obs/LUTS: Code(s): N40.1 - Benign prostatic hyperplasia with lower urinary tract symptoms; N13.8 - Other obstructive and reflux uropathy Category: Medical Plan Six-month follow-up PSA Orders: Orders AMB Post Void Residual by ultrasound Today R33.9 - Retention of urine, unspecified Prostate Specific Antigen 6 Months R97.20 - Elevated prostate specific antigen [PSA] Patient Instructions: Imaging studies, laboratory and physical exam results were discussed and reviewed in detail. No major barriers to patient understanding were identified. An opportunity to ask questions regarding the treatment plan was provided. All questions were answered. The patient expressed understanding and agreement with the above treatment plan. The patient is aware they should contact our office by phone for worsening of their current condition or the appearance of new urologic symptoms. Compliance is encouraged with any medications and followup testing that is ordered. It is a privilege to participate in the urologic care of your patient. If you have any questions or concerns regarding treatment for the above conditions, or other urologic issues, please do not hesitate to contact me. The office telephone contact is [phone]. This note is constructed using voice recognition software. While every effort has been made to ensure accuracy remote control mirror installer errors may have been included. Yours sincerely, Dr Jorge Sexton MD, [facility] - Urology Providers of Expert, Compassionate Care for the Genitourinary System Coding Level of Care Code Est Pt Level 3 (85761) Diagnoses Elevated PSA R97.20 BPH w urinary obs/LUTS N40.1; N13.8 CPT Codes Post Residual Void - PVR CPT Code: 63458-Vdaj Void Residual by ultrasound ([id number])
== END 2024-02-21 15:12 | disposition home or self-care (01) ==
PROVIDERS: PCP Nurse Practitioner Family; Visit Provider Urology
DX: R97.20 Elevated prostate specific antigen [PSA] (principal); N40.1 Benign prostatic hyperplasia with lower urinary tract symptoms; N13.8 Other obstructive and reflux uropathy
CPT/HCPCS: 99213

== ENCOUNTER → 2024-02-21 14:31 | Outpatient (BNVA) | payer MEDICARE, SELFPAY | PROVIDERS: PCP Nurse Practitioner Family; Visit Provider Urology | DX: R97.20 Elevated prostate specific antigen [PSA] (principal); N40.1 Benign prostatic hyperplasia with lower urinary tract symptoms; N13.8 Other obstructive and reflux uropathy; R33.9 Retention of urine, unspecified | CPT/HCPCS: 51798; 99212 ==

== ENCOUNTER 2024-08-17 08:59 | Outpatient (REF) | payer MEDICARE, SELFPAY ==
[2024-08-17 12:16] LABS: Prostate Specific Antigen 2.77 ng/mL (<0.05-4.0)
== END 2024-08-17 09:00 | disposition home or self-care (01) ==
LOC: HO.HMGCLDS 08:59
PROVIDERS: PCP Nurse Practitioner Family; Visit Provider Urology
DX: R97.20 Elevated prostate specific antigen [PSA] (principal); Z12.5 Encounter for screening for malignant neoplasm of prostate
CPT/HCPCS: 36415; 84153

== ENCOUNTER 2024-08-22 13:01 | Outpatient (AMB) | payer MEDICARE, SELFPAY ==
--- NOTE | 2024-08-22 13:03 | MHC.OFFVIS ---
Intake Visit Reasons: 6m/PSA(set) Intake Note: Patient is present for Telephone PSA Follow up Urology Med: Finasteride, Oxybutynin(Patient states he is not taking) Antibiotic Allergy: None Blood Thinner: Xarelto Recent PSA: 08/17/2024 PSA 2.77 Technical Delivery Manager Required: No Accompanied by: Self / Same As Patient Allergies No Known Allergies Allergy (Verified 08/22/24 13:04) HPI Comments Details: Obed is a pleasant male. He is a patient of . He seen for the following urologic conditions - lower urinary tract symptoms - incomplete bladder emptying Telemedicine Evaluation 15 min Consultation Medical Referral Source Juan Video 6 m f/u Current medication finasteride - Tuesday, Tuesday, Tuesday Slight PSA rebound after dose reduction Prior Cystoscopy - Trilobar hypertrophy with long intra prostatic urethra - Bladder with significant trabeculations and cellules 09/22 - GreenLight laser prostatectomy PSA 02/20 6.0 17%, 02/21 1.8, 08/23 2.8 12m f/u PSA, PVR Lower urinary tract symptoms Progressive Known large prostate imaging representing 120 cc Prior medications include combination therapy with tamsulosin and finasteride Prior PVR 140 cc Primarily weakness of stream with nocturia PFSH Medical History COPD (chronic obstructive pulmonary disease) Prediabetes Afib Anxiety Hyperlipemia Hypertension Surgical History History of coronary artery bypass graft x 2 History of elbow surgery History of repair of left rotator cuff History of knee surgery History of colonoscopy Social History Household Members: Spouse Housing: House Are you a primary director critical care to a significant other at home: No Do you presently have visiting nurse or other home services: No 75 years or older and lives alone: No Alcohol intake: current Alcohol intake frequency: holidays/special occasions only Comment: tolerable Patient Tobacco Use Status: Former Tobacco user Tobacco use type: Cigarette Review of Systems Const All systems reviewed & are unremarkable except as noted in HPI and below Reports no additional complaints Resp Reports no additional complaints GI Reports no additional complaints Reports as per HPI Musc Reports no additional complaints Physical Exam Telemedicine evaluation Appropriate responses Regular breathing rate and rhythm HEENT Head: Yes normal to inspection Ears: hearing grossly normal bilaterally Eyes General: appearance normal, both eyes and all related structures Neck Neck: Yes normal visual inspection Chest Chest palpation & inspection: normal inspection of the chest Resp Effort & Inspection: normal respiratory effort and able to speak in complete sentences Telehealth Telehealth Telehealth Platform: [employer] Location of provider rendering services: practice address Location of patient: address on file Patient Identification confirmed using: Name, : Yes Telehealth method: video Patient verbally consented to treatment: Yes Patient verbally consented to billing insurance company: Yes Patient informed of any privacy concerns related to visit: Yes Minutes spent on Phone/Video with Pt.: 15 Assessment & Plan Assessment & Plan (1) BPH w urinary obs/LUTS: Code(s): N40.1 - Benign prostatic hyperplasia with lower urinary tract symptoms; N13.8 - Other obstructive and reflux uropathy Category: Medical (2) Elevated PSA: Code(s): R97.20 - Elevated prostate specific antigen [PSA] Category: Medical (3) Urinary frequency: Code(s): R35.0 - Frequency of micturition Category: Medical Plan Twelve month follow-up PSA and PVR Orders: Orders Prostate Specific Antigen 364 Days R97.20 - Elevated prostate specific antigen [PSA] Medications: Refilled finasteride 5 mg orally Tuesday, Tuesday, Tuesday; Take Tuesday, Tuesday, Tuesday 90 days 90 tabs 1RF N13.8 - Other obstructive and reflux uropathy, N40.1 - Benign prostatic hyperplasia with lower urinary tract symptoms, R33.9 - Retention of urine, unspecified Patient Instructions: Imaging studies, laboratory and physical exam results were discussed and reviewed in detail. No major barriers to patient understanding were identified. An opportunity to ask questions regarding the treatment plan was provided. All questions were answered. The patient expressed understanding and agreement with the above treatment plan. The patient is aware they should contact our office by phone for worsening of their current condition or the appearance of new urologic symptoms. Compliance is encouraged with any medications and followup testing that is ordered. It is a privilege to participate in the urologic care of your patient. If you have any questions or concerns regarding treatment for the above conditions, or other urologic issues, please do not hesitate to contact me. The office telephone contact is [phone]. This note is constructed using voice recognition software. While every effort has been made to ensure accuracy geropsychologist errors may have been included. Yours sincerely, Dr Jorge Sexton MD, [facility] - Urology Providers of Expert, Compassionate Care for the Genitourinary System Coding Level of Care Code Tele Est Pt Level 3 (95957) Diagnoses BPH w urinary obs/LUTS N40.1; N13.8 Elevated PSA R97.20 Urinary frequency R35.0
== END 2024-08-22 14:11 | disposition home or self-care (01) ==
LOC: HO.HUSH 13:01
PROVIDERS: PCP Nurse Practitioner Family; Visit Provider Urology
DX: N40.1 Benign prostatic hyperplasia with lower urinary tract symptoms (principal); N13.8 Other obstructive and reflux uropathy; R97.20 Elevated prostate specific antigen [PSA]; R35.0 Frequency of micturition
CPT/HCPCS: 99213

== ENCOUNTER → 2024-08-22 13:01 | Outpatient (BNVA) | payer MEDICARE, SELFPAY | PROVIDERS: PCP Nurse Practitioner Family; Visit Provider Urology ==

== ENCOUNTER 2025-08-14 13:18 | Outpatient (REF) | payer MEDICARE, SELFPAY ==
[2025-08-14 14:36] LABS: Prostate Specific Antigen 1.26 ng/mL (<0.05-4.0)
--- OUTSIDE RECORDS SUMMARY | 2025-08-14 16:57 | XMS_ITS | Patient Health Record ---
Author Organization [facility] Address [address] [place] [address] Care Team Providers Care Accounting Clerk Name Role Phone Krysten Page ALVARADO Primary Care Provider Jose E Williamson Unavailable [phone] Allergies No Known Allergies Reason For Referral No Information Medications Medication SIG (Take, Route, Frequency, Duration) Notes Start Date End Date Status Venlafaxine HCl ER 75 MG Oral; Duration: 90 Active Furosemide 40 MG Oral; Duration: 90 Active Zetia 10 MG 1 tablet Orally Once a day; Duration: 30 day(s) Active Tamsulosin HCl 0.4 MG Oral; Duration: 90 Not-Taking Trelegy Ellipta 100-62.5-25 MCG/INH Inhalation; Duration: 90 Active Xarelto 20 MG Oral; Duration: 30 Active Metoprolol Succinate ER 50 MG Oral; Duration: 90 Active Atorvastatin Calcium 80 MG Oral; Duration: 90 Active Montelukast Sodium 10 MG Oral; Duration: 90 Active Immunizations Vaccine Route Administration Date Status Comme nts Influenza Unknown 07/01/2021 Administered Social History Alcohol Screen Question Answer Notes Did you have a drink contain ing alcohol in the past year? Yes How often did you have a dri nk containing alcohol in the past year? 2 to 4 times a month (2 points) How many drinks did you have on a typical day when you were drinking in the past year? 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) Active confirmed Problem Pre-procedure evaluation check (212403748) Encounter for other preprocedural examination (Z01.818) Active confirmed Problem Diverticulosis of colon (679563865) Diverticulosis of colon (K57.30) Active confirmed Plan Of Treatment Pending Test Test Name Order Date Pathology 06/25/2022 Future Test Test Name Order Date COLONOSCOPY 11/18/2011 COLONOSCOPY 05/06/2022 Insurance Providers Payer Name Payer Address Payer Phone Subscriber Number Group Number Insured Name Patient Relationship to Insured Coverage Start Date Coverage End Date MEDICARE OF [place] [address] [place] [address] [phone] [id number] SUSAN FRANK Self - patient is the insured [employer] CLAIMS [address] [place] [address] [phone] [id number] SUSAN FRANK Self - patient is the insured Medical (General) History Medical History History ICD Code Hypertension Hyperlipidemia Anxiety Denies VA,DM,CVA,renal disease Afib--sees Dr. Guerrero at [facility] Prediabetic COPD He had a negative screening colonoscopy at age 51 [address] Salgado and a negative colonoscopy with me in 2011 Surgical History Surgery Date(Month/Year) Knee surgery X 3--bilateral Rotator cuff surgery on the left Elbow surgery on the right 2 Vessel CABG 2018
--- OUTSIDE RECORDS SUMMARY | 2025-08-14 16:57 | XMS_ITS | Data Portability ---
Author Organization [place] - [facility] Address [address] [place] [address] Assessment Encounter Date Assessment Date Assessment LastModified by Organization Details LastModified Time 10/01/2024 10/01/2024 I am seeing the patient today under the supervision of Dr. Aviles who was available but who did not see the patient. HPI: 74-year-old gentleman known to me with history of bilateral thumb CMC arthritis. He gets periodic injections. As well with them for approximately 3 months. Says exacerbation recently right greater than left. Bothers him with freedman pinch fire fighter and grasp. Past family, medical, social history and review of systems has been reviewed, updated and is located in the patient s chart. Examination: the patient is alert and cooperative in no acute distress. Afebrile, vital signs stable. There is active ROM of the risks and thumbs. The right. There is tenderness at the base. The right thumb metacarpal trapezial joint across all the surfaces. There is pain with axial grinding. On the left. Similar symptoms of pain across the CMC joint. There is mild hyperextension of the MCP. Circulation, sensation intact bilaterally. Impression: Bilateral thumb CMC arthritis, symptomatic Plan: Today. The patient requests using sterile technique. Injection of 0.1. Marcaine 0.4 Kenalog were injected in each thumb CMC joint. Post injection across and discussed. Recheck as needed [email or web address] Not available 10/01/2024 08:42:57 07/22/2025 07/22/2025 I am seeing the patient today under the supervision of Dr. Aviles who was available but who did not see the patient. HPI: 75-year-old male known to me with a history of bilateral CMC thumb arthritis. Receives periodic injections. Last injection approximately 4 months ago. He gets relief for a while and has recurrence of discomfort, particularly on the right. Past family, medical, social history and review of systems has been reviewed, updated and is located in the patient s chart. Examination: the patient is alert and cooperative in no acute distress. Afebrile, vital signs stable. There is active ROM of the wrist and digits. There is slight prominence and tenderness in the base of each thumb metacarpal trapezial joint, right greater than left. There is slight subcutaneous areas of bruising secondary to using anticoagulants. Circulation and sensation are intact. Distal Impression: Bilateral thumb CMC arthritis Plan: At the patient's request, using sterile technique. Injections of 0.1. Marcaine 0.4 Kenalog were injected into each thumb CMC joint without difficulty. Postinjection crush and discussed. He can recheck with Dr. Aviles for surgical consultation. [email or web address] Not available 07/22/2025 09:34:42 Plan of Treatment Reminders Order Date Submit Date Provider Last Modified By Organization Details Last Modified Time Details Appointments MUST SEE MD Alex 025 09:30AM Nato Aviles MD Not available Not available Not available Lab None record ed. Referral None record ed. Procedures None record ed. Surgeries None record ed. Imaging None record ed. Medication Orders None record ed. Patient TargetsNo targets recorded. Patient InstructionsNo instructions recorded. Reason for Referral None Reported. Problems Name Problem SNOMED Code Status Onset Date Resolution Date Notes Provider Name and Address Organization Details Recorded Time No complaints [id number] Active Status : 'A'; Not Available [facility] 4 09:22:06 Problem Notes None recorded. Procedures Surgical History Date Name Laterality Status Provider Name and Address Organization Details Recorded Time 07/22/20 25 Small Joint Kenalog Injection, L/R completed Jose Cruz Ross PA-C [address], [place], [address], [facility] 07/22/2025 09:35:38 01/01/20 25 JZCMC Inj completed Kira Benavidez PA-C [address], [place], [address], [facility] 12/31/2024 09:10:18 10/01/20 24 Small Joint Kenalog Injection, L/R completed Edward Pacitti, PA-C [address], [place], [address], [facility] 10/01/2024 08:43:53 07/03/20 24 Small Joint Kenalog Injection, Bilateral completed Jose Cruz Jarretti, PA-C [address], [place], [address], [facility] 07/03/2024 08:50:22 04/03/20 24 Small Joint Kenalog Injection, L/R completed Jose Cruz Ross, PA-C [address], [place], [address], [facility] 04/03/2024 09:55:33 01/11/20 24 Small Joint Kenalog Injection, L/R completed Jose Cruz Ross, PA-C [address], [place], [address], [facility] 01/11/2024 11:29:59 12/15/19 19 Cardiovascular Surgery completed [facility] 12/31/2024 08:44:26 Knee Surgery completed [facility] 12/31/2024 08:44:26 Shoulder Surgery completed [facility] 12/31/2024 08:44:26 Elbow Surgery completed [facility] 12/31/2024 08:44:26 Imaging Results None recorded. Procedure Notes None recorded. Medical Equipment None Reported. Allergies No known drug allergies Medications Name Sig Start Date Stop Date Status Note LastModified by Organization Details LastModified Time metformin 500 mg tablet active Not Available Not Available No t Available atorvastatin 80 mg tablet active Not Available Not Available Not Available metoprolol succinate ER 50 mg tablet,extend ed release 24 hr 12/25 completed Not Available Not Available Not Available valacyclovir 1 gram tablet 12/25 completed Not Available Not Available Not Available prednisone 20 mg tablet 12/25 completed Not Available Not Available Not Available venlafaxine ER 150 mg capsule,exten ded release 24 hr active Not Available Not Available Not Available spironolacton e 25 mg tablet 12/25 completed Not Available Not Available Not Available tamsulosin 0.4 mg capsule 03/28 completed Not Available Not Available Not Available cephalexin 500 mg capsule 06/26 completed Not Available Not Available Not Available gabapentin 300 mg capsule 12/25 completed Not Available Not Available Not Available montelukast 10 mg tablet TAKE 1 TABLET DAILY active Not Available Not Available No t Available mupirocin 2 % topical ointment 03/28 completed Not Available Not Available Not Available furosemide 20 mg tablet active Not Available Not Available No t Available gabapentin 100 mg capsule 12/25 completed Not Available Not Available Not Available metoprolol succinate ER 25 mg tablet,extend ed release 24 hr active Not Available Not Available Not Available finasteride 5 mg tablet TAKE 1 TABLET TUESDAY, , TUESDAY active Not Available Not Available No t Available Ventolin HFA 90 mcg/actuation aerosol inhaler active Not Available Not Available Not Available ezetimibe 10 mg tablet TAKE 1 TABLET DAILY active Not Available Not Available No t Available pregabalin 25 mg capsule 12/25 completed Not Available Not Available Not Available pregabalin 75 mg capsule 12/25 completed Not Available Not Available Not Available Zirgan 0.15 % eye gel 12/25 completed Not Available Not Available Not Available Xarelto 20 mg tablet active Not Available Not Available Not Available Farxiga 10 mg tablet active Not Available Not Available Not Available Entresto 97 mg-103 mg tablet active Not Available Not Available Not Available Entresto 49 mg-51 mg tablet 03/28 completed Not Available Not Available Not Available Entresto 24 mg-26 mg tablet 03/28 completed Not Available Not Available Not Available Trelegy Ellipta 100 mcg-62.5 mcg-25 mcg powder for inhalation active Not Available Not Available N ot Available Ozempic 1 mg/dose (4 mg/3 mL) subcutaneous pen injector active Not Available Not Available Not Available Ozempic 0.25 mg or 0.5 mg (2 mg/3 mL) subcutaneous pen injector 12/25 completed Not Available Not Available Not Available Vitals Date Recorded Body height Body mass index (BMI) Body weight Provider Name and Address Organization Details Last Updated DateTime 12/31/2024 185.42 cm 34.3 kg/m2 513952.02 g Mildred Cordovago [facility] 12/31/2024 08:43:49 Date Recorded Body height Body mass index (BMI) Body weight Provider Name and Address Organization Details Last Updated DateTime 04/03/2024 185.42 cm 34.3 kg/m2 774343.02 g MARIKA VALDOVINOSDEN [facility] 04/03/2024 09:45:43 Date Recorded Body height Body mass index (BMI) Body weight Provider Name and Address Organization Details Last Updated DateTime 07/03/2024 185.42 cm 34.3 kg/m2 012243.02 g Renita Ibarraers [facility] 07/03/2024 08:37:15 Date Recorded Body height Body mass index (BMI) Body weight Provider Name and Address Organization Details Last Updated DateTime 07/22/2025 185.42 cm 28.2 kg/m2 36623.77 g BHAVANA BARAJAS [facility] 07/22/2025 09:13:04 Social History Question Answer Notes LastModified by [employer] ion Details LastModified Time Tobacco Smoking Status Former Smoker Mildredmarcia winters [facility] 12/31/2024 08:44:22 When Did You Quit Smoking? 16+yearssinc elastcigaret te [email or web address] Information not available 12/31/2024 What Is Your Relationship Status? [email or web address] Information not available 12/31/2024 How Many Years Have You Smoked Tobacco? 15 [email or web address] Information not available 12/31/2024 Sex: Unknown Functional Status Question Answer Note LastModified by [facility] [employer] ion Details LastModified Time How many times per week do you consume alcohol? Less than 1 time per week [email or web address] Information not available 12/31/2024 Do you use any illicit or recreational drugs? No [email or web address] Information not available 12/31/2024 Do you or have you ever used any other forms of tobacco or nicotine? No [email or web address] Information not available 12/31/2024 Do you or have you ever used e-cigarettes or vape? Never used electronic cigarettes [email or web address] Information not available 12/31/2024 Mental Status None recorded. Family History Nothing Reported. Medical History Condition Response Coronary Artery Disease Y Bleeding Disorder Y Sleep Apnea Y Congestive Heart Failure (CHF) Y Heart Disease Y COPD Y Asthma Y Past Encounters Encounter ID Performer Location Encounter Start Date Encounter Closed Date Diagnosis/Indication Diagnosis SNOMED-CT Code Diagnosis ICD10 Code Diagnosis IMO Codes Diagnosis Note [id number] Jose Cruz Ross PA-C [place] [address] [place], [place] [address] 01/11/2024 10:09:32 01/11/2024 13:22:28 Arthritis of first carpometacarpal joint of right hand 9626464540 851995 M13.249 [id number] Jose Cruz Ross PA-C [place] [address] [place], [place] [address] 04/03/2024 09:19:21 05/08/2024 10:36:39 Arthritis of bilateral first carpometacarpal joints 8117556785 197259 M13.841 M13.893 [id number] Jose Cruz Ross PA-C [place] [address] [place] [address] 07/03/2024 08:26:36 07/26/2024 14:41:08 Arthritis of bilateral first carpometacarpal joints 7950207487 018659 M13.841 M13.220 [id number] Jose Cruz Ross PA-C [place] [address] [place], [place] [address] 10/01/2024 08:22:38 10/11/2024 12:35:10 Arthritis of bilateral first carpometacarpal joints 9443943828 149281 M18.0 1410473113 [id number] Kira Benavidez PA-C [facility] [address] [place], [place] [address] 12/31/2024 08:33:58 01/14/2025 13:21:13 [id number] Jose Cruz Ross PA-C [facility] [address] [place], [place] [address] 07/22/2025 09:09:03 07/31/2025 14:18:35 Arthritis of bilateral first carpometacarpal joints 5317274546 200266 M18.0 [id number] Health Concerns Section Related Observation LastModified by Organization Detai ls LastModified Time None Recorded Concern Status LastModified by Organization Details LastModified Time None Recorded Advance Directives Directive None Recorded Payers Insurance Date Sequence Insurance Name Policy Number Policy Heart Covered Member ID Heart Member ID Guarantor Name 07/19/2025 1 [place] [employer] Obed Simmons [id number] Obed Ortiz [place] 07/31/2025 2 [place] [id number] Obed Simmons [id number] Obed Simmons Notes Date Note Type Note Provider Name and Address Organization Details Recorded Time 04/03/2024 text/html I am seeing the patient today under the supervision of Dr. Aviles who was available but who did not see the patient.HPI: 74-year-old male seen today in follow-up of basal joint arthritis both thumbs. He generally comes every 3 months for injection therapy seems to help him for a while. Recently said more diminishing results with the injections only lasting maybe 6 weeks or so and then having increased pain which bothers him with freedman pinch fire fighter and grasp.Past family, medical, social history and review of systems has been reviewed, updated and is located in the patient s chart.Examination:t he patient is alert and cooperative in no acute distress. Afebrile, vital signs stable. There is active ROM of the wrist and digits. There is tenderness across all the services of each thumb metacarpal trapezial joint, positive axial grind test. No hyperextension of the MCPs. No tenderness in the, snuffbox, negative Gisela sign.Impression: Bilateral basal joint arthritis. Each thumbPlan:. The patient is requesting injections. Today, after informed consent. Using sterile technique 0.1. Marcaine 0.4 Kenalog were injected in each thumb CMC joint. Postinjection precautions discussed. We does not discussion regarding surgical treatment today. He will recheck in 3 months. Jose Cruz Ross PA-C [address] [facility] [address], [place], [address], [facility] 04/03/2024 09:56:23 07/03/2024 text/html I am seeing the patient today under the supervision of Dr. Aviles who was available but who did not see the patient.HPI: 74-year-old male seen with recurrence of pain in both thumb CMC joint. He has a known history of CMC arthritis and is seen periodically for injection therapy, which seems to work well for him.Past family, medical, social history and review of systems has been reviewed, updated and is located in the patient s chart.Examination:t he patient is alert and cooperative in no acute distress. Afebrile, vital signs stable. There is active ROM of the wrist and forearms. There is tenderness across the services of the thumb CMC joints bilaterally, slightly worse on the left. There is no hyperextension of the MCP joints. Circulation and sensation are intact distallyImpression: Bilateral thumb CMC arthritisPlan: At the patient's request under sterile technique. Injections of 0.1. Marcaine 0.4. Kenalog injection to each thumb CMC joint. Postinjection precautions discussed. Recheck 3-4 months as needed Jose Cruz Ross PA-C [address] [facility] [address], [place], [address], [facility] 07/03/2024 08:51:11 12/31/2024 text/html I am seeing the patient today under the supervision of dr Aviles who was available but who did not see the patient. 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 Has increasing pain with grasp and freedman pinch for the past several months. Anti-inflammatories ineffective. No splinting. No falls or trauma. Past family, medical, social history and review of systems has been reviewed, updated and is located in the patient s chart. Examination: Alert and oriented 3. No acute distress. Nonantalgic gait. right Thumb reveals no soft tissue swelling erythema ecchymosis. Tender over the TM joint. Positive first CMC joint grind test. No tenderness of the first dorsal compartment. Negative Tinel sign over the distal radial sensory nerve. Neurovascular intact. No tenderness over the A1 alexsandra region. Inspection the left hand reveals no swelling, erythema, ecchymoses or deformity. Full movement of the forearm, wrist and digits. X-rays ordered, obtained and reviewed at [facility] Impression/Plan:The findings and situation discussed with the patient. Recommended a cortisone injection to the TM joint. Under aseptic technique, 40 mg Kenalog 40 and 1 cc of 0.5% marcaine were injected into the right TM joint. The patient tolerated the procedure well. Postinjection precautions reviewed. The patient will follow up in 6 weeks if no improvement. Provided with the basilar joint handout. Kira Benavidez PA-C [address] [facility] [address], [place], [address], [facility] 12/31/2024 09:10:22
--- OUTSIDE RECORDS SUMMARY | 2025-08-14 16:57 | XMS_ITS | Patient Health Record ---
Author Organization [facility] Address [address] [place] [address] Care Team Providers Care Golf Club Weigher Name Role Phone Page Bashir Primary Care Provider Lianet Rucker Unavailable [phone] Reason For Referral No Information Medications Medication SIG (Take, Route, Frequency, Duration) Notes Start Date End Date Status Xarelto 20 MG Oral; Duration: 90 Active Venlafaxine HCl 37.5 MG Oral; Duration: 30 Active Tamsulosin HCl 0.4 MG Oral; Duration: 90 Active Montelukast Sodium 10 MG Oral; Duration: 90 Active Metoprolol Succinate ER 25 MG Oral; Duration: 90 Active Lasix 40 MG 1 tablet Orally Once a day; Duration: 30 day(s) Active Ezetimibe 10 MG Oral; Duration: 90 Active Dronedarone HCl 400 MG Orally Active Atorvastatin Calcium 80 MG Oral; Duration: 90 Active Advair HFA Not-Takin g Anoro Ellipta 62.5-25 MCG/INH 1 puff Inhalation Once a day Active Immunizations Vaccine Route Administration Date Status Comme nts Influenza Unknown 07/25/2020 Administered Social History Tobacco Use: Social History Observation Description Date Details (start date - stop date) Former Smoker NA - NA Tobacco Use/Smoking Question Answer Notes Are you a: former smoker Additional Findings: Tobacco Non-User Current no n-smoker Alcohol Screen Question Answer Notes Did you have a drink containing alcohol in the p ast year? Yes Points 0 Interpretation Negative Tobacco use other than smoking: Question Answer Notes Are you an other tobacco user? No Plan Of Treatment Pending Test Test Name Order Date X ray : Foot, left 3V 07/11/2020 [id number] TENDON SHEATH/LIGAMENT 0 07/11/2020 Insurance Providers Payer Name Payer Address Payer Phone Subscriber Number Group Number Insured Name Patient Relationship to Insured Coverage Start Date Coverage End Date Medicare National [employer]t S[employer] [address] [place] [address] [id number] Obed Simmons Self - patient is the insured [employer] [address] [place] [address] [phone] [id number] Obed Simmons Self - patient is the insured Medical (General) History Medical History History ICD Code asthma Back,Hip,and Knee pain Broken bones Cataracts Heart disease High blood pressure Measles Chicken pox Vascular grafts Surgical History Surgery Date(Month/Year) knee surgery, right knee surgery, left shoulder surgery elbow sx CABG surgery 12/15/19
== END 2025-08-14 13:19 | disposition home or self-care (01) ==
LOC: HO.LAB 13:18
PROVIDERS: PCP Nurse Practitioner Family; Visit Provider Urology
DX: Z12.5 Encounter for screening for malignant neoplasm of prostate (principal); R97.20 Elevated prostate specific antigen [PSA]
CPT/HCPCS: 36415; 84153

== ENCOUNTER 2025-08-21 14:29 | Outpatient (AMB) | payer MEDICARE, SELFPAY ==
--- NOTE | 2025-08-21 14:30 | A.OFFVIS_ITS ---
Intake Visit Reasons: 1y/PSA/PVR Intake Note: Patient is present for: 1yr follow up Urology Med: Finasteride, Oxybutynin Blood Thinner: none labs done 08/14/25: PSA 1.26 today's PVR: 129mls Field Marketing Coordinator Required: No Accompanied by: Self / Same As Patient Allergies No Known Allergies Allergy (Verified 08/21/25 14:33) HPI Comments Details: Obed is a pleasant male. He is a patient of . 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 - Bladder with significant trabeculations and cellules 09/22 - GreenLight laser prostatectomy PSA 02/20 6.0 17%, 02/21 1.8, 08/23 2.8, 08/24 1.3 12m f/u PSA, PVR Lower urinary tract symptoms Progressive Known large prostate imaging representing 120 cc Prior medications include combination therapy with tamsulosin and finasteride Prior PVR 140 cc Primarily weakness of stream with nocturia PFSH Medical History COPD (chronic obstructive pulmonary disease) Prediabetes Afib Anxiety Hyperlipemia Hypertension Surgical History History of coronary artery bypass graft x 2 History of elbow surgery History of repair of left rotator cuff History of knee surgery History of colonoscopy Social History Household Members: Spouse Housing: House Are you a primary home care manager rn to a significant other at home: No Do you presently have visiting nurse or other home services: No 75 years or older and lives alone: No Alcohol intake: current Alcohol intake frequency: holidays/special occasions only Comment: tolerable Patient Tobacco Use Status: Former Tobacco user Tobacco use type: Cigarette Review of Systems Const Denies chills and Denies fever(s) Card Reports no additional complaints and Denies syncope Resp Denies cough GI Denies abdominal pain and Denies heartburn Reports as per HPI and Denies change in libido Neuro Denies syncope Psych Denies change in libido Endo Denies change in libido Physical Exam Const General: cooperative, healthy appearing, comfortable and no acute distress Orientation/consciousness: patient oriented x3 HEENT Face and sinus: Yes normal facial exam Mouth: moist mucous membranes Neck Neck: Yes normal visual inspection, Yes full ROM and Yes trachea midline Chest Chest palpation & inspection: normal inspection of the chest Resp Effort & Inspection: normal respiratory effort, able to speak in complete sentences and no respiratory distress GI Inspection: Yes normal to inspection Back/Spine/Pelvis Cervical Spine: normal cervical lordosis Thoracic/Lumbar Spine: thoracic and lumbar spine normal to inspection Skin General skin exam: no rashes or lesions noted Neuro General: patient oriented x3, gait normal, tone normal and moves all extremities Extrem General: Yes normal to inspection and Yes capillary refill normal Assessment & Plan Assessment & Plan (1) BPH w urinary obs/LUTS: Code(s): N40.1 - Benign prostatic hyperplasia with lower urinary tract symptoms; N13.8 - Other obstructive and reflux uropathy Category: Medical (2) Incomplete bladder emptying: Code(s): R33.9 - Retention of urine, unspecified Category: Medical Plan Twelve month follow-up Orders: Orders Prostate Specific Antigen 12 Months R97.20 - Elevated prostate specific antigen [PSA] Medications: Discontinued sulfamethoxazole-trimethoprim 400-80 mg (Bactrim) Discontinued Reason: Patient Completed Course 1 tab PO DAILY 10 tabs 0RF cephalexin Discontinued Reason: Patient Completed Course 500 mg PO QID 28 caps 0RF oxybutynin chloride Discontinued Reason: Patient Completed Course 5 mg PO Q8H 30 days PRN 20 tabs 0RF bladder spasms R33.9 - Retention of urine, unspecified, R39.15 - Urgency of urination ciprofloxacin HCl Hold low dose bactrim while on treatment for UTI Discontinued Reason: Patient Completed Course 250 mg PO BID 7 days 14 tabs 0RF N39.0 - Urinary tract infection, site not specified Patient Instructions: This note is constructed using voice recognition software. While every effort has been made to ensure accuracy language therapist errors may have been included. Imaging studies, laboratory and physical exam results were discussed and reviewed in detail. No major barriers to patient understanding were identified. An opportunity to ask questions regarding the treatment plan was provided. All questions were answered. The patient expressed understanding and agreement with the above treatment plan. The patient is aware they should contact our office by phone for worsening of their current condition or the appearance of new urologic symptoms. Compliance is encouraged with any medications and followup testing that is ordered. It is a privilege to participate in the urologic care of your patient. If you have any questions or concerns regarding treatment for the above conditions, or other urologic issues, please do not hesitate to contact me. The office telephone contact is [phone]. Sincerely, Dr Jorge Sexton MD, [facility] - Urology Compassionate Specialist Care for the Genitourinary System Coding Level of Care Code Est Pt Level 4 (49739) Complex EM visit Add On G2211 Diagnoses BPH w urinary obs/LUTS N40.1; N13.8 Incomplete bladder emptying R33.9
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
--- OUTSIDE RECORDS SUMMARY | 2025-08-21 20:41 | XMS_ITS | Patient Health Record ---
Author Organization [facility] Address [address] [place] [address] Care Team Providers Care People Greeter Name Role Phone Krysten Page ALVARADO Primary Care Provider Joes E Williamson Unavailable [phone] Allergies No Known Allergies Reason For Referral [...] Problem Screening for malignant neoplasm of colon (884489849) Encounter for screening for malignant neoplasm of colon (Z12.11) Active confirmed Problem Long-term current use of anticoagulant (019237843) continuous churn buttermaker (current) use of anticoagulants (Z79.01) Active confirmed Problem Pre-procedure evaluation check (372214066) Encounter for other preprocedural examination (Z01.818) Active confirmed Problem Diverticulosis of colon (627441661) Diverticulosis of colon (K57.30) Active confirmed Plan Of Treatment Pending Test Test Name Order Date Pathology 06/25/2022 Future Test Test Name Order Date COLONOSCOPY 11/18/2011 COLONOSCOPY 05/06/2022 Insurance Providers Payer Name Payer Address Payer Phone Subscriber Number Group Number Insured Name Patient Relationship to Insured Coverage Start Date Coverage End Date MEDICARE OF [place] [address] [place] [address] [id number] SUSAN FRANK Self - patient is the insured [employer] CLAIMS [address] [place] [address] [id number] SUSAN FRANK Self - patient is the insured Medical (General) History Medical History History ICD Code Hypertension Hyperlipidemia Anxiety Denies OH,DM,CVA,renal disease Afib--sees Dr. Guerrero at [facility] Prediabetic COPD He had a negative screening colonoscopy at age 51 [address] Salgado and a negative colonoscopy with me in 2011 Surgical History Surgery Date(Month/Year) Knee surgery X 3--bilateral Rotator cuff surgery on the left Elbow surgery on the right 2 Vessel CABG 2018
--- OUTSIDE RECORDS SUMMARY | 2025-08-21 20:42 | XMS_ITS | Patient Health Record ---
Author Organization [facility] Address [address] [place] [address] Care Team Providers Care Customer Services Coordinator Name Role Phone Page Bashir Primary Care Provider Lianet Rucker Unavailable [phone] Reason For Referral No Information Medications Medication [...] X ray : Foot, left 3V 07/11/2020 [id number] TENDON SHEATH/LIGAMENT 0 07/11/2020 Insurance Providers Payer Name Payer Address Payer Phone Subscriber Number Group Number Insured Name Patient Relationship to Insured Coverage Start Date Coverage End Date Medicare National Govt Svcs Inc [address] [place] [address] [id number] Obed Simmons Self - patient is the insured [employer] [address] [place] [address] [phone] [id number] Obed Simmons Self - patient is the insured Medical (General) History Medical History History ICD Code asthma Back,Hip,and Knee pain Broken bones Cataracts Heart disease High blood pressure Measles Chicken pox Vascular grafts Surgical History Surgery Date(Month/Year) knee surgery, right knee surgery, left shoulder surgery elbow sx CABG surgery 12/15/19
== END 2025-08-21 14:58 | disposition home or self-care (01) ==
LOC: HO.HUSH 14:30
PROVIDERS: PCP Nurse Practitioner Family; Visit Provider Urology
DX: N40.1 Benign prostatic hyperplasia with lower urinary tract symptoms (principal); N13.8 Other obstructive and reflux uropathy; R33.9 Retention of urine, unspecified; Z13.9 Encounter for screening, unspecified
CPT/HCPCS: 99214; G2211

== ENCOUNTER → 2025-08-21 14:29 | Outpatient (BNVA) | payer MEDICARE, SELFPAY | PROVIDERS: PCP Nurse Practitioner Family; Visit Provider Urology | DX: N40.1 Benign prostatic hyperplasia with lower urinary tract symptoms (principal); N13.8 Other obstructive and reflux uropathy; R33.9 Retention of urine, unspecified; R97.20 Elevated prostate specific antigen [PSA] | CPT/HCPCS: 51798; 81003; 99212 ==